=== PATIENT | male | born 1990 | race Caucasian/White ===

== ENCOUNTER 2018-07-25 11:42 | Emergency (ER) | payer OTHER ==
[~2018-07-25] VITALS: Ht 167.6 cm; Wt 81.0 kg
[2018-07-25 11:54] VITALS: BP 128/82
== END 2018-07-25 13:16 | disposition home or self-care (01) ==
LOC: ER 11:42
DX: L03.211 Cellulitis of face (principal)
CPT/HCPCS: 99283